=== PATIENT | male | born 1990 | race Two or more races ===

== ENCOUNTER 2016-11-08 06:56 | Emergency (ER) | payer OTHER ==
[~2016-11-08] VITALS: Ht 175.3 cm; Wt 68.0 kg
[2016-11-08 07:10] VITALS: BP 134/84
[2016-11-08] MEDS ORDERED: ACETAMINOPHEN 325MG TABLET PO ONE (08:00)
[2016-11-08] MEDS ORDERED: BACITRACIN ZINC OINT UDPKT TOP ONE (08:00)
== END 2016-11-08 09:16 | disposition home or self-care (01) ==
LOC: ER 06:57
DX: S01.01XA Laceration without foreign body of scalp, initial encounter (principal); M54.2 Cervicalgia; M25.551 Pain in right hip; V43.62XA Car passenger injured in collision with other type car in traffic accident, initial encounter; Y93.89 Activity, other specified; Y99.9 Unspecified external cause status; Y92.89 Other specified places as the place of occurrence of the external cause
CPT/HCPCS: 12001; 72170; 99283; Z7610